=== PATIENT | female | born 1980 | race Caucasian/White ===

== ENCOUNTER 2020-09-02 20:28 | Inpatient (IN) | payer OTHER ==
[2020-09-02] MEDS ORDERED: ePHEDrine SULFATE 50 MG/1 ML INJ IV PRN (23:09)
[2020-09-02] MEDS ORDERED: TERBUTALINE 1 MG/1 ML INJ SUB-Q PRN (23:09)
[2020-09-02] MEDS ORDERED: BUTORPHANOL 2 MG/1 ML INJ IV PRN ×2 (23:09)
[2020-09-02] MEDS ORDERED: MINERAL OIL 30 ML ORAL LIQD PO PRN (23:09)
[2020-09-02 23:22] LABS: Hematocrit 37.3 % (30.3-42.9); Mean Corpuscular HGB Conc 35 % (30-34); Mean Corpuscular Volume 97 fl (79-97); Platelet Count 216 K/mm3 (140-440); Red Blood Count 3.85 M/mm3 (3.65-5.03); Red Cell Distribution Width 12.7 % (13.2-15.2)
[2020-09-02] MEDS ORDERED: AMPICILLIN/NS 2 GM/100 ML 2 GM/100 ML BAG IV ONE (23:44)
[2020-09-02] MEDS ORDERED: OXYTOCIN DRIP 30 UNITS/500 ML BAG IV SCH ×2 (23:45)
[2020-09-02] MEDS ORDERED: LIDOCAINE (2%) 20 MG/1 ML VIAL 20 ML MDV INFILTRATI ONE (23:49)
[2020-09-03] MEDS: LACTATED RINGERS 1,000 ML IV SCH ×2 (00:12→16:35)
[2020-09-03] MEDS ORDERED: DINOPROSTONE 10 MG VAG SUPP VG ONE ×3 (00:45→22:00)
[2020-09-03] MEDS ORDERED: AMPICILLIN/NS 1 GM/50 ML 1 GM/50 ML BAG IV SCH (04:00)
--- NOTE | 2020-09-03 07:00 | History and Physical Report ---
History of Present Illness Date of examination: 09/03/20 Date of admission: 09/02/20 23:09 Chief complaint: "I'm here for my induction" History of present illness: 40 y/o presented to L&D for an IOL r/t JOY. Pt denied VB or LOF and admitted to active . She initiated her pnc at [facility] at 9 wks and was co managed by [facility] r/t JOY. Pt was diag with IUGR early preg, but it latter resolved. Hx of thyroidectomy, but no meds have been needed. GBS pos. Pt was admited to L&D for an IOL. Labs: A pos AB screen neg Rubella Immune VDRL NR HBsAg neg HIV neg Varicella Zoster Immune Hgb EE AA Gc/Chly/trich neg Plt 363k H&H 13.3/39.6 1 hr gtt 157 3 hr gtt wnl Past History Past Medical History: other (AMA, vit D def) Past Surgical History: other (thyroidectomy) Family/Genetic History: none Social history: , full code - Obstetrical History Expected Date of Delivery: 09/08/20 Actual Gestation: 39 Week(s) 2 Day(s) : 3 Para: 2 Hx # Term Pregnancies: 2 Number of Living Children: 2 Medications and Allergies Allergies Allergy/AdvReac Type Severity Reaction Status Date / Time No Known Allergies Allergy Unverified 09/02/20 21:46 Active Meds: Active Medications Butorphanol Tartrate (Butorphanol 2 Mg/1 Ml Inj) 1 mg IV Q2H PRN PRN Reason: Pain, Moderate(4-6) LABOR PAIN Butorphanol Tartrate (Butorphanol 2 Mg/1 Ml Inj) 2 mg IV Q2H PRN PRN Reason: Pain , Severe (7-10) Ephedrine Sulfate (Ephedrine Sulfate 50 Mg/1 Ml Inj) 10 mg IV Q2M PRN PRN Reason: Hypotension Fentanyl (Fentanyl 100 Mcg/2 Ml Inj) 100 mcg IV Q2H PRN PRN Reason: Pain,Severe (7-10) LABOR PAIN Oxytocin/Sodium Chloride (Pitocin/Ns 30 Unit/500ml) 30 units in 500 mls @ 2 mls/hr IV TITR LISA; Protocol Lactated Ringer's (Lactated Ringers) 1,000 mls @ 125 mls/hr IV DIRECT LISA Last Admin: 09/03/20 00:12 Dose: 125 mls/hr Documented by: Oxytocin/Sodium Chloride (Pitocin/Ns 30 Unit/500ml) 30 units in 500 mls @ 40 mls/hr IV TITR LISA; Protocol Ampicillin Sodium (Ampicillin/Ns 1 Gm/50 Ml) 1 gm in 50 mls @ 100 mls/hr IV Q4H LISA; Protocol Mineral Oil (Mineral Oil 30 Ml Oral Liqd) 30 ml PO QHS PRN PRN Reason: Constipation Terbutaline Sulfate (Terbutaline 1 Mg/1 Ml Inj) 0.25 mg SUB-Q ONCE PRN PRN Reason: Hyperstimulation/Hypertonicity Review of Systems All systems: negative Eyes: deferred Ears, nose, mouth and throat: deferred Genitourinary: normal appearance Rectal Exam: deferred - Vital Signs Vital signs: Vital Signs Pulse Pulse Ox 81 100 09/02/20 21:01 09/02/20 21:01 Temp Pulse Resp BP Pulse Ox 98.1 F 79 15 93/55 98 09/03/20 02:56 09/03/20 06:43 09/02/20 21:11 09/03/20 03:30 09/03/20 06:43 - Physical Exam Breasts: Positive: normal Abdomen: Positive: normal appearance, soft, normal bowel sounds Genitourinary (Female): Positive: normal external genitalia, normal perenium Vulva: both: normal Vagina: Positive: normal moisture Uterus: Positive: enlarged, normal contour, other (gravid) Adnexa: both: normal Anus/Rectum: Positive: normal perianal skin Extremities: Positive: normal - Obstetrical FHR: category 1 Uterine Contraction Monitor Mode: External Cervical Dilatation: 1 Cervical Effacement Percentage: 25 station: -3 Uterine Contraction Frequency (min): irreg Uterine Contraction Pattern: Irregular Uterine Tone Measurement Phase: Resting Uterine Contraction Intensity: Mild Results Result Diagrams: 09/02/20 22:56 Abnormal lab results 09/02/20 Range/Units 22:56 MCH 34 H (28-32) pg MCHC 35 H (30-34) % RDW 12.7 L (13.2-15.2) % All other labs normal. Assessment and Plan A: IUP@ 39.2wks AMA with thyroidectomy GBS pos P: Admit to L&D for an IOL Continuous monitoring GBS prophylaxis Pain med/Epidural Anticipate
[2020-09-03] MEDS ORDERED: LIDOCAINE (2%) 20 MG/1 ML VIAL 20 ML MDV INFILTRATI NR (09:16)
[2020-09-03 10:05] LABS: Hematocrit 34.8 % (30.3-42.9); Hemoglobin 12.1 gm/dl (10.1-14.3)
--- NOTE | 2020-09-03 18:08 | Event Note ---
Date: 09/03/20 E FT/50/-3/posterior/ballottable. Plan to use Cervidil again tonight at 10:00 PM. Will allow patient to eat and rest and shower.
--- NOTE | 2020-09-04 12:08 | Progress Note ---
Assessment and Plan induction of labor. Subjective Date of service: 09/04/20 Principal diagnosis: term fracisco preg Interval history: see h and p. Objective - Constitutional Vitals: Vital Signs - 12hr 09/04/20 09/04/20 01:57 03:56 Temperature 98.7 F 96.9 F L Pulse Rate 63 Respiratory 14 Rate Blood Pressure 112/65 - Genitourinary Female genitourinary: other (cx =3 cms) - Labs CBC & Chem 7: 09/03/20 09:43 Medications & Allergies - Medications Allergies/Adverse Reactions: Allergies No Known Allergies Allergy (Unverified 09/02/20 21:46) Home Medications: Home Medications Medication Instructions Recorded Confirmed Last Taken Type No Known Home Medications [No 09/03/20 09/03/20 Unknown History Reported Home Medications] Active Medications: Generic Name Dose Route Start Last Admin Trade Name Freq PRN Reason Stop Dose Admin Butorphanol Tartrate 1 mg 09/02/20 23:09 Butorphanol 2 Mg/1 Ml Inj IV Q2H PRN Pain, Moderate(4-6) LABOR PAIN Butorphanol Tartrate 2 mg 09/02/20 23:09 Butorphanol 2 Mg/1 Ml Inj IV Q2H PRN Pain , Severe (7-10) Ephedrine Sulfate 10 mg 09/02/20 23:09 Ephedrine Sulfate 50 Mg/1 Ml Inj IV Q2M PRN Hypotension Fentanyl 100 mcg 09/02/20 23:09 Fentanyl 100 Mcg/2 Ml Inj IV Q2H PRN Pain,Severe (7-10) LABOR PAIN Oxytocin/Sodium Chloride 30 units in 500 mls @ 2 mls/hr 09/02/20 23:45 Pitocin/Ns 30 Unit/500ml IV TITR LISA Protocol Lactated Ringer's 1,000 mls @ 125 mls/hr 09/02/20 23:15 09/03/20 16:35 Lactated Ringers IV 125 mls/hr DIRECT LISA Administration Oxytocin/Sodium Chloride 30 units in 500 mls @ 40 mls/hr 09/02/20 23:45 Pitocin/Ns 30 Unit/500ml IV TITR LISA Protocol Ampicillin Sodium 1 gm in 50 mls @ 100 mls/hr 09/03/20 04:00 Ampicillin/Ns 1 Gm/50 Ml IV Q4H LISA Protocol Mineral Oil 30 ml 09/02/20 23:09 Mineral Oil 30 Ml Oral Liqd PO QHS PRN Constipation Terbutaline Sulfate 0.25 mg 09/02/20 23:09 Terbutaline 1 Mg/1 Ml Inj SUB-Q ONCE PRN Hyperstimulation/Hypertonicity
[2020-09-04] MEDS: LACTATED RINGERS 1,000 ML IV SCH (14:15)
[2020-09-04] MEDS ORDERED: LACTATED RINGERS 1,000 ML IV SCH (14:15)
[2020-09-04] MEDS ORDERED: AMPICILLIN/NS 2 GM/100 ML 2 GM/100 ML BAG IV ONE (15:26)
[2020-09-04] MEDS: fentaNYL 100 MCG/2 ML INJ IV PRN ×2 (17:08→19:36)
[2020-09-04] MEDS ORDERED: LIDOCAINE (2%) 20 MG/1 ML VIAL 20 ML MDV INFILTRATI ONE (20:58)
[2020-09-04] MEDS ORDERED: WITCH HAZEL/ GLYCERIN PAD TP PRN (21:10)
[2020-09-04] MEDS ORDERED: PROMETHAZINE 25 MG RECT SUPP PR PRN (21:10)
[2020-09-04] MEDS ORDERED: MAGNESIUM HYDROXIDE (MOM) ORAL LIQD UDC PO PRN (21:10)
[2020-09-04] MEDS ORDERED: PROMETHAZINE 25 MG TAB PO PRN (21:10)
[2020-09-04] MEDS ORDERED: diphenhydrAMINE 25 MG CAP PO PRN (21:10)
[2020-09-04] MEDS ORDERED: ONDANSETRON 4 MG/2 ML INJ IV PRN (21:10)
[2020-09-04] MEDS ORDERED: ACETAMINOPHEN 325 MG TAB PO PRN (21:13)
[2020-09-04] MEDS ORDERED: BENZOCAINE/MENTHOL 20/0.5% TOP SPRAY 56 GM TP PRN (21:13)
[2020-09-04] MEDS ORDERED: HYDROcodone/ACETAMINOPHEN 5-325 MG TAB PO PRN (21:13)
--- NOTE | 2020-09-04 21:19 | Procedure Note ---
Date of procedure: 09/04/20 Pre-op diagnosis: ama, term Post-op diagnosis: same Procedure: . REPAIR 2 DEGREE ML TEAR WITH 2 O VICRYL. RECTAL MUCOSA INTACT.REPAIR WITH 1%XYLOCAINE. Anesthesia: local Estimated blood loss: other (300 CCS) Pathology: none Specimen disposition: discarded Condition: stable Disposition: observation (MALE , 7' 12", 8,9.)
[2020-09-04] MEDS: IBUPROFEN 600 MG TAB PO SCH (23:15)
[2020-09-05] MEDS: IBUPROFEN 600 MG TAB PO SCH ×3 (06:36→18:27)
[2020-09-05 08:38] LABS: Hematocrit 35.5 % (30.3-42.9); Hemoglobin 12.3 gm/dl (10.1-14.3)
--- NOTE | 2020-09-05 11:41 | Progress Note ---
Assessment and Plan A: day 1 S/P . P: Continue routine care. Anticipate discharge home tomorrow if patient continues to do well. Subjective - Subjective Date of service: 09/05/20 Principal diagnosis: day 1 S/P Patient reports: appetite normal, voiding normally, pain well controlled, flatus, ambulating normally, no dizzy ambulation, no nauseated [place]: doing well Objective - Vital Signs Latest vital signs: Vital Signs Temp Pulse Resp BP Pulse Ox 09/05/20 08:31 98.1 F 87 18 103/71 99 09/05/20 06:36 18 09/05/20 05:40 97.5 F L 88 18 101/71 99 09/05/20 05:39 79 151/112 97 09/04/20 23:08 84 101/70 98 09/04/20 22:25 88 105/63 09/04/20 22:20 37.8 F L 09/04/20 22:10 73 103/61 09/04/20 21:55 88 101/53 09/04/20 21:40 82 106/55 09/04/20 21:25 85 113/68 09/04/20 21:14 76 112/70 09/04/20 19:36 20 09/04/20 19:01 81 113/58 09/04/20 18:31 71 101/62 09/04/20 18:24 73 98/60 09/04/20 16:54 76 99 09/04/20 16:49 79 99 09/04/20 16:44 76 99 09/04/20 16:39 75 99 09/04/20 16:34 75 98 09/04/20 16:29 74 98 09/04/20 16:24 71 99 09/04/20 16:19 73 98 09/04/20 16:14 72 99 09/04/20 16:09 75 100 09/04/20 16:04 80 100 09/04/20 16:00 98.4 F 09/04/20 15:59 82 100 09/04/20 15:54 75 99 09/04/20 15:49 92 H 100 09/04/20 15:44 73 114/69 99 09/04/20 15:42 59 L 79 L 09/04/20 12:00 98.0 F Intake and Output 09/04/20 09/05/20 09/05/20 23:59 07:59 15:59 Intake Total 120 Output Total 900 450 Balance -900 -330 Intake: Oral 120 Output: Urine 900 450 Void 900 450 Other: Total, Intake Amount 120 Total, Output Amount 900 450 # Voids Void 1 2 Estimated Blood Loss 300 - Exam Cardiovascular: Present: Regular rate Lungs: Present: Clear to auscultation Abdomen: Present: normal appearance, soft. Absent: distention, tenderness, guarding, rigidity Uterus: Present: normal, firm, fundal height below umbilicus. Absent: bogginess, tenderness Extremities: Present: normal. Absent: tenderness, edema
[2020-09-06] MEDS: IBUPROFEN 600 MG TAB PO SCH ×2 (05:25→17:35)
[2020-09-06] MEDS: LANOLIN/ZINC/DIMETHICONE (LANSINOH) 7 GM TP PRN ×2 (05:32→17:35)
--- NOTE | 2020-09-06 06:56 | Progress Note ---
Assessment and Plan A: day 2 S/P . P: Discharge patient home today. Discussed with patient discharge instructions and warning signs. Advised patient to continue taking her vitamins at home. Advised patient to avoid intercourse and lifting for 6 weeks. Advised patient to follow up at [facility] office in 2 weeks. Patient voiced understanding of all instructions. Subjective - Subjective Date of service: 09/06/20 Principal diagnosis: day 2 S/P Interval history: Doing well; no complaints. Patient desires discharge home today. Patient reports: appetite normal, voiding normally, pain well controlled, ambulating normally, no dizzy ambulation, no nauseated [place]: doing well Objective - Vital Signs Latest vital signs: Vital Signs Temp Pulse Resp BP Pulse Ox 09/06/20 00:54 98.1 F 81 18 93/63 98 09/05/20 16:01 97.6 F 86 18 111/71 100 09/05/20 12:59 20 09/05/20 12:47 98.4 F 90 18 99/68 99 09/05/20 08:31 98.1 F 87 18 103/71 99 Intake and Output 09/05/20 09/05/20 09/06/20 15:59 23:59 07:59 Intake Total 840 840 480 Output Total 650 Balance 190 840 480 Intake: Oral 360 360 120 Intake, Free Water 480 480 360 Output: Urine 650 Void 650 Other: Total, Intake Amount 240 360 120 Total, Output Amount 200 # Voids Void 2 3 1 - Exam Cardiovascular: Present: Regular rate Lungs: Present: Clear to auscultation Abdomen: Present: normal appearance, soft. Absent: distention, tenderness, guarding, rigidity Uterus: Present: normal, firm, fundal height below umbilicus. Absent: bogginess, tenderness Extremities: Present: normal. Absent: tenderness
--- NOTE | 2020-09-06 07:01 | Discharge Summary ---
Providers - Providers Date of Admission: 09/02/20 23:09 Date of discharge: 09/06/20 Attending physician: LUDIVINA CARRINGTON JR, MD Primary care physician: LUDIVINA CARRINGTON JR, MD Hospitalization Reason for admission: induction of labor Delivery: Laceration: 2nd degree Other procedures: none complications: none Discharge diagnosis: IUP at term delivered baby: male Pertinent studies: Labs. Hospital course: Normal hospital course. Condition at discharge: Good Disposition: DC-01 TO HOME OR SELFCARE - Discharge Diagnoses (1) Term delivered Status: Acute Plan - Provider Discharge Summary Activity: routine, no sex for 6 weeks, no heavy lifting 4 weeks, no strenuous exercise Diet: routine Instructions: routine Additional instructions: Continue taking your vitamins at home. Call your doctor immediately for: * Fever > 100.5 * Heavy vaginal bleeding ( >1 pad per hour) * Severe persistent headache * Shortness of breath * Reddened, hot, painful area to leg or breast - Follow up plan Follow up: LUDIVINA CARRINGTON JR, MD [Primary Care Provider] - 14 Days
[2020-09-06 17:44] VITALS: BP 109/71
== END 2020-09-06 21:00 | disposition home or self-care (01) | DRG 807 ==
LOC: TRG 20:28 → LD 20:32 → TRG 23:09 → LD 23:09 → OB 09-05 00:22
PROVIDERS: ADMIT Obstetrics & Gynecology; ATTEND Obstetrics & Gynecology
PROC: 10E0XZZ Delivery of Products of Conception, External Approach (ICD-10-PCS; principal; 2020-09-04)
PROC: 0KQM0ZZ Repair Perineum Muscle, Open Approach (ICD-10-PCS; 2020-09-04)
DX: O99.824 Streptococcus B carrier state complicating childbirth (principal); Z37.0 Single live birth; Z3A.39 39 weeks gestation of pregnancy; Z20.822 Contact with and (suspected) exposure to COVID-19; O09.513 Supervision of elderly primigravida, third trimester; O70.1 Second degree perineal laceration during delivery; E89.0 Postprocedural hypothyroidism; O99.284 Endocrine, nutritional and metabolic diseases complicating childbirth
CPT/HCPCS: 36415; 59200; 85014; 85018; 85027; 86850; 86900; 86901; 96365; G0378; A6250; J0290; J2590; J3010; J7120; U0003